=== PATIENT | male | born 1975 | race Caucasian/White ===

== ENCOUNTER 2016-12-03 12:08 | Emergency (ER) | payer OTHER ==
--- NOTE | ~2016-12-03 | ER ---
PATIENT'S NAME: JANUARY AHMADI [facility] AGE: 41 Y [address] ROOM: [place] [id number] LOCATION: ED ADMIT DATE: 12/03/2016 ER/Outpatient Report DISCHARGE DATE: 12/03/2016 FAMILY PHYSICIAN: Esau Miller MD ATTENDING PHYSICIAN: Eliot Adam Time of arrival: 1212 hours. Time of Exam: 1220 hours. CHIEF COMPLAINT: Right lower quadrant abdominal pain. HISTORY OF PRESENT ILLNESS: The patient states has had some right lower quadrant abdominal pain since yesterday. It radiates towards the middle of his stomach in the lower quadrant, feels best when he is lying flat. He is up walking and tends to increase in pain. The pain has become more constant in the last 24 hours. He has not been nauseated, has not vomited. Had a loose stool this morning. Has not had fever or chills. Denies any difficulty with urination or pain with urination. Has never had pain like this before. ALLERGIES: HE HAS NO KNOWN ALLERGIES. CURRENT MEDICATIONS: On his chart and reviewed by me. PAST MEDICAL HISTORY: Includes aortic valve dysfunction describes what sounds like cardiomyopathy. PAST SURGERIES: Aortic valve replacement in 2015. SOCIAL HISTORY: He denies use of tobacco, drugs, or alcohol. REVIEW OF SYSTEMS: All negative other than those mentioned in the HPI. PHYSICAL EXAMINATION: VITAL SIGNS: He weighed 92.9 kg. Blood pressure is 148/69, pulse of 54, respirations 16, temperature of 97.1, and O2 saturation is 95% on room air. GENERAL: He is awake, alert, and oriented x4. SKIN: [place], warm, and dry. RESPIRATIONS: Even and nonlabored. Lung sounds are clear throughout. PATIENT'S NAME: JANUARY AHMADI [facility] AGE: 41 Y [address] ROOM: [place] [address] LOCATION: ED ADMIT DATE: 12/03/2016 ER/Outpatient Report DISCHARGE DATE: 12/03/2016 FAMILY PHYSICIAN: Esau Miller MD ATTENDING PHYSICIAN: Eliot Adam HEART: Regular rate and rhythm. ABDOMEN: Soft, nondistended. Bowel sounds are present. He is tender in the right lower quadrant with deep palpation. No rebound tenderness. EMERGENCY DEPARTMENT COURSE: Saline lock was initiated. Lab work was drawn. CBC is within normal limits. Chem panel shows a total bilirubin of 1.9, AST is 28, and ALT is 31. ProBNP was 173. Clean-catch UA is negative. CT of the abdomen was completed. Radiologist, Dr. Bonilla, reviewed no acute abnormalities. No signs of appendicitis. No signs of obstruction. The patient able to remain comfortable in the ER as long as he did not do a lot of moving around, did not have any vomiting while he was here. Assessment is unchanged. IMPRESSION: Right lower quadrant abdominal pain. PLAN: Home, rest. Recommend a clear liquid diet tonight. Easy to digest type foods. Tylenol as needed for discomfort. If the pain did not improve within the next 24 to 48 hours, I encouraged him to follow up with Dr. Miller. He and his verbalized understanding. AGUSTÍN CARDOSO APRN FOR MD [facility]/jose /[id number] d: 12/03/162019 t: 12/05/16 182, OUTPATIENT REPORT
[2016-12-03 12:57] LABS: BASOPHIL % 0.3 %; EOSINOPHIL # 0.1 K/uL (0.0-0.5); EOSINOPHIL % 1.5 %; HEMATOCRIT 43.4 % (37.0-53.0); IMMATURE GRANULOCYTE % 0.3 %; LYMPHOCYTE # 1.9 K/uL (0.8-4.0); LYMPHOCYTE % 27.1 %; MCH 30.2 pg (27.0-34.0); MCHC 34.6 gm/dL (32.0-36.5); MCV 87.5 fl (83.0-98.0); MONOCYTE # 0.7 K/uL (0.0-1.0); MONOCYTE % 9.8 %; MPV 10.8 fl (9.4-12.4); NEUTROPHIL # (ANC) 4.4 K/uL (1.4-9.0); NRBC % 0 /100WBC (0-0.00); PLATELET COUNT 168 K/uL (150-450); RBC 4.96 M/uL (4.00-6.00); RDW-CV 13.4 % (11.9-14.6); WBC 7.2 K/uL (4.0-11.0)
[2016-12-03 13:02] LABS: BILIRUBIN URINE NEGATIVE (NEGATIVE); BLOOD URINE NEGATIVE /UL (NEGATIVE); COLOR URINE YELLOW (YELLOW); GLUCOSE URINE NEGATIVE (NEGATIVE); KETONE URINE NEGATIVE (NEGATIVE); LEUKOCYTES URINE NEGATIVE /UL (NEGATIVE); NITRITE URINE NEGATIVE (NEGATIVE); PROTEIN URINE NEGATIVE (NEGATIVE); TURBIDITY URINE CLEAR (CLEAR); UROBILINOGEN URINE NORMAL (NORMAL)
[2016-12-03 13:15] LABS: ALK PHOS 65 IU/L (33-138); ALT 31 IU/L (12-78); ANION GAP 10.1 (10.0-19.0); AST 28 IU/L (10-40); BLOOD UREA NITROGEN 15 mg/dL (6-24); CALCIUM 8.5 mg/dL (8.5-10.5); CHLORIDE 108 mMol/L (96-110); CO2 25 mMol/L (22-32); POTASSIUM 4.1 mMol/L (3.7-5.1); SODIUM 139 mMol/L (135-145); TOTAL BILIRUBIN 1.9 mg/dL (0.0-1.5); TOTAL PROTEIN 7.3 g/dL (6.0-8.4)
[2016-12-03 13:19] LABS: ESTIMATED GFR (MDRD EQUATION) > 60
== END 2016-12-03 14:35 | disposition disaster alternative care site (69) ==
LOC: GMED 12:08
PROVIDERS: Nurse Practitioner Family
DX: R10.31 Right lower quadrant pain (principal); Z79.82 Long term (current) use of aspirin; Z79.899 Other long term (current) drug therapy
CPT/HCPCS: Q9967